=== PATIENT | female | born 1960 | race Caucasian/White ===

== ENCOUNTER → 2018-10-21 | Outpatient (CLI) | payer OTHER ==
[~2018-10-21] MED LIST: IOPAMIDOL 370 MG/ML 200 ML INFUS..BTL INJ ONE; SODIUM CHLORIDE 0.9% 50ML 50 ML ONE
--- NOTE | 2018-10-21 16:21 | Diagnostic Imaging Report ---
Exam: Neck CT with contrast Indication: Right external auditory canal mass Comparisons: None Technique: Axial images were obtained from the skull base to the thoracic inlet. Coronal and sagittal images reconstructed from the axial data. Dose modulation, iterative reconstruction, and/or weight based adjustment of the mA/kV was utilized to reduce the radiation dose to as low as reasonably achievable. Findings: Airway: Patent. Soft tissues: No abnormalities. Lymph nodes: No radiographically significant adenopathy. Vessels: Patent carotid and vertebral arteries, as well as, the jugular veins. Glands (thyroid, parotid and submandibular): A 1.9 x 1.5 x 1.6 cm circumscribed enhancing mass is noted within the superficial lobe of the right parotid gland (series 3, image 85). The stylomastoid foramen, stylomandibular tunnel, pterygopalatine fossa, and foramen ovale/rotundum are unremarkable. Otherwise, normal in size and symmetric. No masses. Orbits: No abnormalities. Paranasal sinuses: Clear. Temporal bones: No abnormalities. Skull base and facial bones: Intact. Cervical spine: Normal cervical lordosis. Degenerative foraminal stenoses moderate bilaterally at C5-C6 and mild bilaterally at C6-C7. Disc osteophyte complex at C5-C6 results in mild to moderate canal stenosis. IMPRESSION: An indeterminate 1.9 cm mass within the right superficial parotid. Differential diagnosis includes primary (i.e. pleomorphic adenoma) and secondary (i.E. lymphoma) etiologies. Recommend ENT evaluation and possible tissue sampling. A preliminary report was provided by Dr. Hart on 10/21/2018 4:20 PM.
== END ==
LOC: CT 14:48
PROVIDERS: ATTEND Otolaryngology Otolaryngology/Facial Plastic Surgery
DX: J32.0 Chronic maxillary sinusitis (principal)
CPT/HCPCS: 70491; Q9967